=== PATIENT | female | born 1940 | race Asian ===

== ENCOUNTER → 2017-05-29 | Outpatient (CLI) | payer BC ==
[~2017-05-29] MED LIST: AMLO5TAB4 PO; ATOR10TA65 PO; CLOP75TA27 PO; DICL25TA11 PO; GABA300C16 PO; LORA10TA3 PO; LOSA50TA2 PO; MONT10TA21 PO; PANT40TA3 PO
== END | disposition home or self-care (01) ==
LOC: RAD 12:37
PROVIDERS: ATTEND Otolaryngology
DX: R13.10 Dysphagia, unspecified (principal)

== ENCOUNTER → 2017-07-03 | Outpatient (CLI) | payer BC | END | disposition home or self-care (01) | LOC: RAD 13:36 | PROVIDERS: ATTEND Otolaryngology | DX: R13.10 Dysphagia, unspecified (principal); E04.9 Nontoxic goiter, unspecified ==

== ENCOUNTER → 2017-07-10 | Outpatient (CLI) | payer BC ==
[~2017-07-10] MED LIST changes: +BARIUM SULFATE 135 ML (E-Z HD) PO ONE
--- NOTE | 2017-07-10 13:28 | RADRPT ---
PROCEDURE: Video-fluoroscopy swallowing study. CLINICAL INDICATION: Dysphagia. TECHNIQUE: Fluoroscopic guided video swallowing study was done in conjunction with the speech ther apist. The study was confined to the oral, pharyngeal, and cervical phases of the swallowing mechani sm. 1.7 minutes of fluoroscopy time was used. 17 series of images were obtained. COMPARISON: CT scan of the cervical spine dated 05/31/2015 which demonstrated a right lobe calcifi ed thyroid nodule. FINDINGS: The right lobe peripherally calcified thyroid nodule is visualized with fluoroscopy. There is no asp iration during swallowing. There is transient penetration. IMPRESSION: 1. No aspiration during swallowing. 2. Right lobe peripherally calcified thyroid nodule noted. 3. Please refer to the speech therapist's recommendations for future feedings. RPTAT: QQ .Feliz Magallon MD, Date Time Electronically viewed and signed by .Feliz Magallon MD, on 07/10/2017 13:28 .R/
== END | disposition home or self-care (01) ==
LOC: RAD 11:54
PROVIDERS: ATTEND Otolaryngology
DX: R13.10 Dysphagia, unspecified (principal); E04.9 Nontoxic goiter, unspecified
CPT/HCPCS: 74230; 92611; Z7610

== ENCOUNTER 2017-12-01 14:56 | Emergency (ER) | END 2017-12-01 17:28 | disposition home or self-care (01) ==

== ENCOUNTER 2019-04-28 10:29 | Observation (INO) | payer BC ==
[~2019-04-28] VITALS: Ht 152.4 cm; Wt 58.0 kg
[2019-04-28] VITALS (20 sets, daily range): BP systolic 121–194; BP diastolic 63–100; PULSE 74–114; RESP 12–20; Ht 152.4 cm; Wt 58.0 kg
[~2019-04-28 10:29] MED LIST changes: +ASPI81TA52 PO; -BARIUM SULFATE 135 ML (E-Z HD) PO ONE; +BENA10TA4 PO; +CEPH-443 PO; +CLON-379 PO; +FEBU80TA PO; +IBUPROFEN 600 MG TAB PO PRN; +LOVA20TA PO; +MONT10TA24 PO; +NACL 0.9% 3 ML SYG IV SCH; +NIAC500T81 PO; +RANI150T5 PO; +SULF1TAB31 PO
[2019-04-28] MEDS ORDERED: DEXAMETHASONE 4 MG/ML 5 ML INJ ONE (13:54)
[2019-04-28] MEDS ORDERED: MIDAZOLAM 1 MG/ML 2 ML INJ ONE (13:54)
[2019-04-28] MEDS ORDERED: FENTAnyl 50 MCG/ML VIAL ONE (13:54)
[2019-04-28] MEDS ORDERED: ONDANSETRON 4 MG INJ ONE (13:54)
[2019-04-28] MEDS ORDERED: SUCCINYLCHOLINE CHLORIDE 100 MG/5 ML SYG IV ONE (13:54)
[2019-04-28] MEDS ORDERED: ROCURONIUM 50 MG INJ ONE (13:54)
[2019-04-28] MEDS ORDERED: EPHEDrine 25 MG/5 ML SYG ONE (13:57)
[2019-04-28] MEDS ORDERED: DESFLURANE 15 MIN ONE (13:57)
[2019-04-28] MEDS ORDERED: LIDOCAINE 2% (SDV) 5 ML INJ ONE (13:57)
[2019-04-28] MEDS ORDERED: PROPOFOL 200 MG INJ ONE (13:57)
[2019-04-28] MEDS ORDERED: MIDAZOLAM 1 MG/ML 2 ML INJ IV PRN (14:00)
[2019-04-28] MEDS ORDERED: MEPERIDINE 25 MG INJ IV PRN (14:00)
[2019-04-28] MEDS ORDERED: LABETALOL HCL 20MG INJ IV PRN (14:00)
[2019-04-28] MEDS ORDERED: ONDANSETRON 4 MG INJ IV PRN (14:00)
[2019-04-28] MEDS ORDERED: DIPHENHYDRAMINE 50 MG INJ IV PRN (14:00)
[2019-04-28] MEDS ORDERED: hydrALAzine 20 MG INJ IV PRN (14:00)
[2019-04-28] MEDS ORDERED: EPHEDrine 25 MG/5 ML SYG IV PRN (14:00)
[2019-04-28] MEDS ORDERED: OXYCODONE/ACETAMINOPHEN (5/325) TAB PO PRN (14:00)
[2019-04-28] MEDS ORDERED: HYDROmorphONE 1 MG/5 ML IV SYRINGE IV PRN ×2 (14:00)
[2019-04-28] MEDS ORDERED: FENTAnyl 50 MCG/ML VIAL IV PRN (14:00)
[2019-04-28] MEDS ORDERED: LIDOCAINE 1%/EPI (1:100,000) (MDV) 20 ML ONE (14:07)
[2019-04-28] MEDS ORDERED: SUGAMMADEX SODIUM 200 MG/2 ML VIAL IV ONE (16:05)
[2019-04-28] MEDS: HYDROCODONE/APAP (5/325) TAB PO PRN (22:55)
[2019-04-29 02:20] VITALS: BP 158/84; PULSE 87; RESP 18
[2019-04-29 07:33] VITALS: BP 168/81; PULSE 56; RESP 18
[2019-04-29 07:34] VITALS: BP 170/80
[2019-04-29] MEDS: HYDROCODONE/APAP (5/325) TAB PO PRN (09:04)
[2019-04-29 13:51] VITALS: BP 111/64; PULSE 71; RESP 18
== END 2019-04-29 14:13 | disposition home or self-care (01) ==
LOC: SDS 10:29 → MS1 20:23
PROVIDERS: ADMIT Otolaryngology; ATTEND Otolaryngology
DX: C73 Malignant neoplasm of thyroid gland (principal); I10 Essential (primary) hypertension; K21.9 Gastro-esophageal reflux disease without esophagitis
CPT/HCPCS: 60240; 82310; 88307; 88331; J0360; J1100; J1170; J2250; J2405; J3010; Z7500; Z7512; Z7610; G0378

== ENCOUNTER → 2019-06-28 | Outpatient (CLI) | payer BC ==
[~2019-06-28] MED LIST changes: -AMLO5TAB4 PO; -ATOR10TA65 PO; -BENA10TA4 PO; +BENA10TA6 PO; -CEPH-443 PO; -CLOP75TA27 PO; -DICL25TA11 PO; -IBUPROFEN 600 MG TAB PO PRN; -LORA10TA3 PO; -LOSA50TA2 PO; -MONT10TA21 PO; -NACL 0.9% 3 ML SYG IV SCH; -PANT40TA3 PO; -SULF1TAB31 PO
== END | disposition home or self-care (01) ==
LOC: NUC 08:38
PROVIDERS: ATTEND Specialist
DX: C73 Malignant neoplasm of thyroid gland (principal)
CPT/HCPCS: 78018; A9517